=== PATIENT | female | born 1970 | race Caucasian/White ===

== ENCOUNTER 2016-04-30 01:04 | Emergency (ER) | payer BC, OTHER ==
[~2016-04-30] VITALS: Ht 170.2 cm; Wt 116.0 kg
[~2016-04-30 01:04] MED LIST: CITA-112 PO; MTR600X PO; PANT40TA PO; iron
[2016-04-30 01:11] VITALS: TEMP 36.5; Ht 170.2 cm; Wt 116.0 kg
--- NOTE | 2016-04-30 01:47 | EMERGENCY ROOM VISIT NOTE ---
History Report prepared by Katalina: Ori Garcia Under the Supervision of: Dr. Shannon Cazares M.D. First contact with patient: :28 Chief Complaint: EAR PAIN Stated Complaint: EAR PAIN History of Present Illness The patient is a 45 year old female who presents to the Emergency Room with complaints of persistent right ear pain that started earlier today The ear is throbbing and has been draining. The patient also notes feeling a popping sensation. The pain is rated 7/10 in severity. The patient was diagnosed with the flu earlier this week. She saw her doctor earlier today for the ear pain and was prescribed ear drops to pick up attendant tomorrow. Source of History: patient Onset: today Position: ear (right) Symptom Intensity: 7/10 Quality: other (throbbing) Timing: other (persistent) Review of Systems See HPI for pertinent positives & negatives. A total of 6 systems reviewed and were otherwise negative. Past Medical & Surgical Medical Problems: (1) Anxiety disorder (2) History of appendectomy (3) Lipoma of skin (4) Mixed anxiety and depressive disorder Family History No pertinent family history Social History Smoking Status: Current Every Day Smoker Alcohol Use: none Marital Status: Housing Status: lives with family Occupation Status: employed Current/Historical Medications Scheduled Amoxicillin & Pot Clavulanate (Augmentin 875-125 mg), 875 MG PO BID Citalopram Hydrobromide (Celexa), 40 MG PO DAILY Pantoprazole (Protonix), 40 MG PO QPM Ranitidine (Zantac), 150 MG PO DAILY Allergies Coded Allergies: No Known Allergies (Verified , 04/30/16) Physical Exam Vital Signs Date Time Temp Pulse Resp B/P Pulse Ox O2 Delivery O2 Flow Rate FiO2 04/30/16 02:28 65 16 153/84 99 Room Air 04/30/16 01:11 36.5 71 18 139/79 96 Room Air Physical Exam Vital signs reviewed. General: Well-appearing female, in no significant distress. HEENT: No scleral icterus, PERRLA, neck supple. Atraumatic. Erythematous right ear canal containing purulent fluid, TM not visualized. Musculoskeletal: Atraumatic, no peripheral edema. Neurologic: Patient awake alert and oriented x 3, full strength in all 4 extremities. Cranial nerves 2 through 12 grossly intact. Skin: Warm, dry, no rash. Medical Decision & Procedures Medications Administered Medications (Trade) Dose Ordered Sig/Shante Route Start Time Stop Time Status Last Admin Dose Admin Amoxicillin/ Clavulanate Potassium (Augmentin Tab) 875 mg ONE ONCE PO 04/30/16 02:00 04/30/16 02:08 DC 04/30/16 02:29 875 MG Ciprofloxacin HCl (Ciprofloxacin 0.3% Op Soln) 4 drops NOW STAT OT 04/30/16 01:54 04/30/16 02:00 DC 04/30/16 02:30 4 DROPS Acetaminophen/ Hydrocodone Bitart ([place] 5/325 Tab) 1 tab NOW STAT PO 04/30/16 01:54 04/30/16 02:00 DC 04/30/16 02:30 1 TAB Acetaminophen/ Hydrocodone Bitart ([place] 5/325mg Home Pack) 1 homepack UD ONCE PO 04/30/16 02:15 04/30/16 02:16 DC 04/30/16 02:30 1 HOMEPACK ED Course 0140: Past medical records reviewed. The patient was evaluated in room B3b. A complete history and physical examination was performed. 0154: [place] 5/325 mg PO, Ciprofloxacin 4 drops OT. 0200: Augmentin 875 mg PO. 0200: Reassessed the patient. Discussed the findings with her. She verbalized understanding and agreement of the treatment plan. The patient is ready for discharge. 0215: [place] 5/325 mg PO home pack. Medical Decision Differential diagnosis: Otitis media, otitis externa, ruptured TM, malignancy, foreign body. This patient was evaluated and appeared to be in some discomfort. Physical examination reveals a likely perforated right TM with purulent material in the canal. There is an erythematous posterior wall of the canal. Patient requested pain medication was given a [place] tablet. She is also given Augmentin and Cipro ophthalmic in the right ear. Patient was given a [place] home pack. She will be placed on Augmentin 7 days and asked to use Cipro drops in the right ear 3 times daily. She'll follow-up with her physician and ENT as necessary. She will return to the ER for worsening of symptoms or any medical concerns. Impression Primary Impression: Right otitis media with spontaneous rupture of eardrum Scribe Attestation The scribe's documentation has been prepared under my direction and personally reviewed by me in its entirety. I confirm that the note above accurately reflects all work, treatment, procedures, and medical decision making performed by me. Departure Information Dispostion Home / Self-Care Prescriptions Amoxicillin & Pot Clavulanate (Augmentin 875-125 mg) 1 Tab Tab 875 MG PO BID for 7 Days, #13 TAB Prov: Shannon Cazares M.D. 04/30/16 Referrals Talia Fink MD (PCP) Forms HOME CARE DOCUMENTATION FORM, IMPORTANT VISIT INFORMATION, WORK / SCHOOL INSTRUCTIONS Patient Instructions [facility] Additional Instructions Diagnosis: Right otitis media with ruptured TM. Augmentin 875 mg twice daily for 7 days. Cipro drops 4 drops to the right ear 3 times daily. Ibuprofen 600 mg every 6 hours as needed for pain or fever. [place] one tablet every 6 hours as needed for more severe pain. Do not drive or take Tylenol with this medication. Follow-up with your physician this week for reevaluation return to the ER for worsening of symptoms or any medical concerns.
[2016-04-30] MEDS ORDERED: HYDROCODONE/ACETAMOPHEN 5/325MG TAB PO STA (01:54)
[2016-04-30] MEDS ORDERED: CIPROFLOXACIN HCL 0.3% OP SOLN 2.5 ML BTL OT STA (01:54)
[2016-04-30] MEDS ORDERED: AMOXICILLIN/CLAVULANATE TAB 875 MG TAB PO ONE (02:00)
[2016-04-30] MEDS ORDERED: AMOX875T PO (02:06)
[2016-04-30] MEDS ORDERED: ZNTT/150 PO (02:08)
[2016-04-30] MEDS ORDERED: CITA40TA12 PO (02:08)
[2016-04-30] MEDS ORDERED: NORCO 5/325MG HOME PACK PO ONE (02:15)
[2016-04-30 02:28] VITALS: BP 153/84; PULSE 65; O2SAT 99
== END 2016-04-30 02:35 | disposition home or self-care (01) ==
LOC: C.EDB 01:05
DX: H66.91 Otitis media, unspecified, right ear (principal); H72.91 Unspecified perforation of tympanic membrane, right ear; F17.200 Nicotine dependence, unspecified, uncomplicated; F41.9 Anxiety disorder, unspecified; F32.9 Major depressive disorder, single episode, unspecified